=== PATIENT | female | born 1995 | race Caucasian/White ===

== ENCOUNTER 2020-05-27 18:49 | Emergency (ER) | payer BC ==
--- NOTE | 2020-05-27 20:14 | ED.PDOC ---
History of Present Illness - General Chief Complaint: ENT Problem Stated Complaint: fever, sorethroat Time Seen by Provider: 05/27/20 19:09 Source: patient Exam Limitations: no limitations - History of Present Illness Initial Comments: The patient is a 24-year-old female presented emergency room secondary to a feeling of mild fatigue as well as a mild headache and mild body aches. Her concern is for coronavirus. No significant shortness of breath. No fevers. No runny nose. No cough. No hypoxia. No nausea vomiting or diarrhea. She does work in the [employer] so exposure is possible. Timing/Duration: other - 12 hours Severity: mild Improving Factors: nothing Worsening Factors: nothing Associated Symptoms: denies symptoms Allergies/Adverse Reactions: Allergies NO KNOWN ALLERGY Allergy (Verified 05/27/20 19:39) Review of Systems - Review of Systems Constitutional: States: malaise EENTM: States: no symptoms reported Respiratory: States: short of breath - Very mild Cardiology: States: no symptoms reported Gastrointestinal/Abdominal: States: no symptoms reported Genitourinary: States: no symptoms reported Musculoskeletal: States: see HPI Skin: States: no symptoms reported Neurological: States: headache Endocrine: States: no symptoms reported All other Systems: No Change from Baseline Physical Exam - Physical Exam General Appearance: Alert, Comfortable, No apparent distress Eye Exam: bilateral normal Ears, Nose, Throat: hearing grossly normal, normal pharynx Neck: full range of motion, supple Respiratory: lungs clear, normal breath sounds, no respiratory distress, no accessory muscle use Cardiovascular/Chest: normal peripheral pulses, regular rate, rhythm, no edema Peripheral Pulses: radial,right: 2+, radial,left: 2+ Gastrointestinal/Abdominal: non tender, soft Rectal Exam: deferred Back Exam: no CVA tenderness, no vertebral tenderness Extremity: normal range of motion, non-tender, normal inspection, no pedal edema, normal capillary refill Neurologic: doctor of podiatric medicine II-XII nml as tested, alert, normal mood/affect, oriented x 3 Skin Exam: normal color Comments: Vital Signs - 24 hr 05/27/20 18:55 Temperature 97.9 F Pulse Rate [ 74 pulse ox] Respiratory 18 Rate Blood Pressure 141/81 [left arm] O2 Sat by Pulse 99 Oximetry Progress - Progress Progress: 05/27/20 20:13 The patient is a 24-year-old female presenting with symptoms concerning for the possibility of a mild coronavirus infection. She has tested negative for coronavirus here and negative for strep throat. Vital signs have remained stable. She needs to keep well-hydrated. Tylenol can be used for any myalgias or headache. ER warnings are given. Keep routine follow-up with primary care doctor. alondra moore [id number] Departure - Departure Clinical Impression: Headache Qualifiers: Headache type: unspecified Headache chronicity pattern: acute headache Intractability: not intractable Qualified Code(s): R51.9 - Headache, unspecified Disposition: Discharge to Home or Self Care Condition: Fair Departure Forms: ED Discharge - Pt. Copy, Patient Portal Self Enrollment Diet: regular diet Activity: increase activity as tolerated Additional Instructions: The patient is a 24-year-old female presenting with symptoms concerning for the possibility of a mild coronavirus infection. She has tested negative for coronavirus here and negative for strep throat. Vital signs have remained stable. She needs to keep well-hydrated. Tylenol can be used for any myalgias or headache. ER warnings are given. Keep routine follow-up with primary care doctor.
[2020-05-27 20:23] VITALS: BP 135/77; TEMP 98.1; O2SAT 98
== END 2020-05-27 20:23 | disposition home or self-care (01) ==
LOC: ER 18:49
DX: R51.9 Headache, unspecified (principal); Z20.828 Contact with and (suspected) exposure to other viral communicable diseases